=== PATIENT | female | born 1950 | race Caucasian/White ===

== ENCOUNTER 2017-05-05 18:49 | Emergency (ER) | payer MEDICARE, OTHER ==
[2017-05-05 19:02] VITALS: O2SAT 98
--- NOTE | 2017-05-05 20:09 | RAD ---
PROCEDURE: Lumbar Spine 5 Views Clinical History: low back pain after fall in sitting position Indication: Same as above Comparison: None . Technique: 5.0 views of the lumbar spine were done. Findings: There is no loss of vertebral body height. There is a well-corticated nonunited fracture fragment along the anterosuperior aspect of the L5 vertebra, most likely an old finding. However the acuteness of this finding can be better assessed on a CT of the lumbar spine examination There is no evidence of spondylolisthesis or spondylolyses in the lumbosacral spine. There is presence of endplate degenerative change and reduction in the intervertebral disc space height at L2/L3 levels, suggestive of degenerative changes There is no significant scoliotic curvature of the lumbar spine. The bone mineralization is normal for patient's age. The thoracolumbar and the lumbosacral junction are intact. The visualized portions of the bilateral sacroiliac joints are unremarkable. The paravertebral soft tissues are radiographically unremarkable. The posterior elements are normal. There is no visualization of any radiopaque foreign bodies in the soft tissues. Impression: There is a well-corticated nonunited fracture fragment along the anterosuperior aspect of the L5 vertebra, most likely an old finding. However the acuteness of this finding can be better assessed on a CT of the lumbar spine examination Electronically signed by: Charli Yepez MD 05/05/2017 8:08 PM CDT Workstation: [id number]
[2017-05-05] MEDS ORDERED: CYCLOBENZAPRINE HCL 10 MG TAB PO ONE (20:28)
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
[2017-05-05 21:40] VITALS: BP 135/80; TEMP 98.6
== END 2017-05-05 22:08 | disposition home or self-care (01) ==
LOC: ER 18:49
DX: S33.5XXA Sprain of ligaments of lumbar spine, initial encounter (principal); E07.9 Disorder of thyroid, unspecified; Z79.899 Other long term (current) drug therapy; X58.XXXA Exposure to other specified factors, initial encounter; Y92.814 Boat as the place of occurrence of the external cause